=== PATIENT | male | born 1990 | race Caucasian/White ===

== ENCOUNTER 2020-08-15 20:06 | Emergency (ER) | payer OTHER, SELFPAY ==
[2020-08-15 20:12] VITALS: BP 117/80; PULSE 71; RESP 19; TEMP 37.1; O2SAT 100; BMI 31.7
--- NOTE | 2020-08-15 21:02 | ED.GENADULT ---
HPI - General Adult General Chief complaint: Dental/Oral Stated complaint: TOOTH AND JAW PAIN Time Seen by Provider: 08/15/20 20:35 Source: patient Mode of arrival: Ambulatory Limitations: no limitations History of Present Illness HPI narrative: Patient is a 29-year-old male here for evaluation of left upper tooth pain. Patient states that he has had issues with his teeth in the past this been going on for upwards of 1 year. He has seen a dentist and was told that he has multiple cavities and he is scheduled to see his dentist on Tuesday of next week for more definitive treatment. He also has pain medication at home and has been taking Tylenol and ibuprofen without much improvement. He is afebrile. No problems swallowing. No problems breathing. Related Data Previous Rx's Medication Instructions Recorded penicillin V potassium 500 mg PO QID 7 Days #28 tab 08/15/20 Allergies Allergy/AdvReac Type Severity Reaction Status Date / Time Sulfa (Sulfonamide Allergy Hives Verified 08/15/20 20:12 Antibiotics) Review of Systems Constitutional Constitutional: Denies fever(s) ENT Ears, Nose, Mouth, and Throat: Denies throat swelling Comments: Left upper tooth pain Cardiovascular Cardiovascular: Denies dyspnea Respiratory Respiratory: Denies dyspnea Integumentary/Breasts Skin/Breast: Denies rash Neurologic Neurologic: Reports system reviewed and no additional complaints, except as documented Hematologic/Lymphatic On Anticoagulants: No Allergic/Immunologic Allergic/Immunologic: Reports system reviewed and no additional complaints, except as documented and Denies throat swelling Patient History Medical History Healthy adult Social History Smoking Status: Current every day smoker Smoking Status: Current every day smoker Substance Use Type: does not use Exam Initial Vital Signs Initial Vital Signs: Vital Signs Temperature 98.7 F 08/15/20 20:12 Pulse Rate 71 08/15/20 20:12 Respiratory Rate 19 08/15/20 20:12 Blood Pressure 117/80 08/15/20 20:12 Pulse Oximetry 100 08/15/20 20:12 Const General: cooperative Limitations: mental status not altered HENMT Head: normal to inspection and normocephalic Ears: TM's normal bilaterally Nose: external nose normal Face and sinus: normal facial exam Mouth: oral mucosae normal, lip normal and tongue normal Teeth and gingiva: fair dentition Throat: posterior oropharynx normal Resp Effort & Inspection: normal respiratory effort Skin Lesions: no lesions Rashes: no rashes Neuro General: patient alert and patient awake Extrem General: capillary refill normal Psych Appearance: grossly normal and well kempt Course Orders Ordered: Discontinued Medications Ketorolac Tromethamine (Ketorolac 30 Mg/Ml Vial) 30 mg IM NOW ONE Stop: 08/15/20 21:11 Last Admin: 08/15/20 21:22 Dose: 30 mg Documented by: SHEREEN Penicillin V Potassium (Penicillin Vk 250 Mg Tablet) 500 mg PO NOW ONE Stop: 08/15/20 21:12 Last Admin: 08/15/20 21:22 Dose: 500 mg Documented by: SHEREEN Vital Signs Vital signs: Vital Signs - 8 hr 08/15/20 21:24 Pulse Rate 75 Respiratory Rate 18 Blood Pressure 153/98 H Pulse Oximetry 100 Medical Decision Making MDM Narrative Medical decision making narrative: Patient does have left upper dental discomfort. There is no obvious abscess noted on the exam today that would be amenable to drainage from the emergency department. He is afebrile. No obvious respiratory issues. Given his discomfort that he is having and the obvious dental caries will place him on antibiotics. Unfortunately he has stronger pain medication already at home with that I would prescribe out of the emergency department so he was instructed that he needed to keep his appointment with his dentist next week. He is given return precautions. He expressed understanding and agreement. Discharge Plan Departure Patient Disposition: Home Clinical Impression: Toothache Instructions: DI for Dental Pain Activity Restrictions/Additional Instructions: Recommend that you continue with the anti-inflammatories such as Tylenol/ibuprofen. He can also continue with the pain medication given to you by the dentist. We will start you on antibiotics and recommend that you keep your follow-up appointment with her dentist next week. Prescriptions: New penicillin V potassium 500 mg tablet 500 mg PO QID 7 Days Qty: 28 RF: 0
[2020-08-15] MEDS: KETOROLAC 30 MG/ML VIAL IM (21:22)
[2020-08-15] MEDS: PENICILLIN VK 250 MG TABLET 500 MG PO (21:22)
[2020-08-15 21:24] VITALS: BP 153/98; PULSE 75; RESP 18; O2SAT 100
== END 2020-08-15 21:25 | disposition home or self-care (01) ==
PROVIDERS: Emergency Provider Emergency Medicine
DX: K08.89 Other specified disorders of teeth and supporting structures (principal)
CPT/HCPCS: 96372; 99283; J1885

== ENCOUNTER 2022-05-07 17:59 | Emergency (ER) | payer OTHER, SELFPAY ==
[2022-05-07 18:02] VITALS: BP 133/81; PULSE 97; RESP 16; TEMP 36.4; O2SAT 97; BMI 40.6
--- NOTE | 2022-05-07 18:04 | DI.RAD.S_ITS ---
PROCEDURE: XR CHEST 1V INDICATIONS: cough, wheezing, short of breath TECHNIQUE: One view of the chest was acquired. COMPARISON: None. FINDINGS: Surgical changes and devices: None. Lungs and pleura: An incomplete inspiratory result is noted, causing a crowded appearance to the lung markings. No focal infiltrates are seen. No pneumothorax or significant pleural effusions are seen. Mediastinum: Mediastinal contours appear normal. Heart size is normal. Bones and chest wall: No suspicious bony lesions. Overlying soft tissues appear unremarkable. IMPRESSION: Limited portable chest examination, without a significant cardiopulmonary abnormality identified. Dictated by: Shola Quinteros M.D. on 05/07/2022 at 17:56 Approved by: Shola Quinteros M.D. on 05/07/2022 at 17:57
[2022-05-07 19:08] LABS: Adenovirus Not Detected (Not Detect); B. parapertussis Not Detected (Not Detecte); Bordetella pertussis Not Detected (Not Detecte); Chlamydophila pneumoniae Not Detected (Not Detect); Coronavirus 229E Not Detected (Not Detect); Coronavirus HKU1 Not Detected (Not Detect); Coronavirus NL 63 Not Detected (Not Detect); Coronavirus OC43 Not Detected (Not Detect); Human Metapneumovirus Detected (Not Detect); Human Rhinovirus/Enterovirus Not Detected (Not Detect); Influenza A Not Detected (Not Detect); Influenza B Not Detected (Not Detect); Mycoplasma pneumoniae Not Detected (Not Detect); Parainfluenza Virus 1 Not Detected (Not Detect); Parainfluenza Virus 2 Not Detected (Not Detect); Parainfluenza Virus 3 Not Detected (Not Detect); Parainfluenza Virus 4 Not Detected (Not Detect); Respiratory Syncytial Virus Not Detected (Not Detect); SARS- CoV-2 Not Detected (Not Detecte)
--- NOTE | 2022-05-07 20:15 | ED.GENADULT ---
HPI - General Adult General Chief complaint: Upper Respiratory Symptoms Stated complaint: Fever, Vomiting Time Seen by Provider: 05/07/22 20:12 History of Present Illness HPI narrative: 31-year-old male daily smoker presents with a chief complaint of various upper respiratory symptoms including nasal congestion, runny nose, sore throat, dry hacking cough and a few episodes of vomiting over the past few days. He is most concerned that may have developed pneumonia. He denies any significant shortness of breath. He states deep breath illicits cough. He denies any abdominal pain or diarrhea. Denies any exposure to obviously ill persons. Related Data Previous Rx's Medication Instructions Recorded benzonatate 200 mg capsule 200 mg PO BID PRN cough #20 caps 05/07/22 ondansetron 4 mg disintegrating 4 mg PO TID-QID PRN nausea and 05/07/22 tablet vomiting #10 tabs Allergies Allergy/AdvReac Type Severity Reaction Status Date / Time Sulfa (Sulfonamide Allergy Hives Verified 08/15/20 20:12 Antibiotics) Review of Systems Review of Systems Narrative: GENERAL: See HPI HEENT: See HPI RESPIRATORY: See HPI CARDIOVASCULAR: Denies chest pain, palpitations, orthopnea, edema, GASTROINTESTINAL: See HPI : Denies dysuria, frequency, incontinence, hematuria, urinary retention. MUSCULOSKELETAL: denies weakness, joint pain, or bony pain SKIN: Denies rash, skin lesions, or other NEUROLOGIC: Denies weakness, headache, numbness, change in speech, confusion, seizures, incoordination. PSYCHIATRIC: No concerning psychosocial issues. 12 point review of systems is negative except for those stated above Patient History Medical History Healthy adult Social History Smoking Status: Current every day smoker Smoking Status: Current every day smoker Substance Use Type: does not use Exam Narrative Exam Narrative: GENERAL: [31] year old patient appears stated age. Well-developed patient, in mild distress. HEAD: Atraumatic. Normocephalic. EYES: Pupils equal round and reactive. Extraocular motions intact. No scleral icterus. No injection or drainage. ENT: Clear nasal drainage. Throat without erythema, clear postnasal drip, tonsillar hypertrophy or exudate. Airway patent. NECK: Trachea midline. Non tender CARDIOVASCULAR: Regular rate and rhythm without murmurs, gallops, or rubs. RESPIRATORY: Mild end expiratory wheeze, deep breath illicits cough, no significant increased work of breathing, tachycardia, tachypnea, hypoxemia or use of accessory muscles GASTROINTESTINAL: Abdomen soft, non-tender, nondistended. EXTREMITIES: No edema or joint tenderness. BACK: Nontender without deformity or crepitance. No flank tenderness. NEURO: AOx3. SKIN: No rash or erythema of visible areas Initial Vital Signs Initial Vital Signs: Vital Signs Temperature 97.6 F 05/07/22 18:02 Pulse Rate 97 H 05/07/22 18:02 Respiratory Rate 16 05/07/22 18:02 Blood Pressure 133/81 05/07/22 18:02 Pulse Oximetry 97 05/07/22 18:02 Oxygen Delivery Method Room Air 05/07/22 18:02 Course Orders Ordered: Discontinued Medications Albuterol (Albuterol Hfa Prepack) 1 box MISC SEEINSTR ONE Stop: 05/07/22 21:09 Last Admin: 05/07/22 21:19 Dose: 1 box Documented By: BOONE Ondansetron HCl (Ondansetron 4 Mg Odt Prepack) 1 bottle MISC SEEINSTR ONE Stop: 05/07/22 21:09 Last Admin: 05/07/22 21:19 Dose: 1 bottle Documented By: BOONE Vital Signs Vital signs: Vital Signs - 8 hr 05/07/22 18:02 Temperature 97.6 F Pulse Rate 97 H Respiratory Rate 16 Blood Pressure 133/81 Pulse Oximetry 97 Oxygen Delivery Method Room Air Medical Decision Making Lab Data Labs: Lab Results 05/07/22 Range/Units 18:06 Chlamy pneumoniae PCR Not detected (Not Detect) Adenovirus (PCR) Not detected (Not Detect) B. pertussis DNA (PCR) Not detected (Not Detecte) B.parapertussis DNA PCR Not detected (Not Detecte) Coronavirus OC43 (PCR) Not detected (Not Detect) Coronavirus HKU1 (PCR) Not detected (Not Detect) Coronavirus 229E (PCR) Not detected (Not Detect) SARS-CoV-2 (PCR) Not detected (Not Detecte) Coronavirus NL63 (PCR) Not detected (Not Detect) Human Metapneumovir PCR Detected H (Not Detect) Influenza Type A (PCR) Not detected (Not Detect) Influenza Type B (PCR) Not detected (Not Detect) M. pneumoniae (PCR) Not detected (Not Detect) Parainfluenza 1 (PCR) Not detected (Not Detect) Parainfluenza 2 (PCR) Not detected (Not Detect) Parainfluenza 3 (PCR) Not detected (Not Detect) Parainfluenza 4 (PCR) Not detected (Not Detect) RSV (PCR) Not detected (Not Detect) Entero/Rhino (PCR) Not detected (Not Detect) Imaging Data Chest x-ray: My Impression: No infiltrate MDM Narrative Medical decision making narrative: [31] year old patient presents with various upper respiratory symptoms including cough, vomiting, nasal congestion runny nose Multiple etiologies for patient's symptoms considered including, but not limited to: [Flu, COVID, pneumonia versus other] Prior Charts reviewed in our EMR Primary Historian: patient Labs reviewed and interpreted by myself: Respiratory panel positive for human metapneumovirus Imaging reviewed: No infiltrate Patient without significant work of breathing, no hypoxemia, no infiltrate on imaging, there is no indication for antibiotics Patient's symptoms improved over duration of stay with above-stated therapies. Findings and discharge diagnosis discussed with patient/family followed by verbalization of understanding Return precautions discussed with patient/family whom verbalize understanding of diagnosis and plan Discharge Plan Departure Patient Disposition: Home Clinical Impression: Acute bronchiolitis due to human metapneumovirus, Vomiting Instructions: DI for Viral Upper Respiratory Infection -- Adult, DI for Vomiting -- Adult Activity Restrictions/Additional Instructions: *You have been diagnosed with [viral upper respiratory infection due to human metapneumovirus. As we discussed your history and physical exam are reassuring, chest x-ray shows no sign of pneumonia and there is no indication for antibiotics] *What to do: *Please continue to take your regular medications as directed. [x ] New medication prescriptions sent to your pharmacy: [[facility] ] [ ] New medication written as a paper prescription [ ] No new medications given *Please follow up with your primary care provider in 2-3 days, call for an appointment. Let them know you were seen in the Emergency Department and that we ask that you be seen in follow up. We will electronically transmit a record of today's note if your PCP is in our system *If you do not have a primary care provider please contact the [facility] Resource line at [phone]. They will ask some questions about your medical history and help get you set up with a doctor in the community. *Return to Emergency Department if you should have any new, worsening or concerning symptoms, such as [fever greater than 101 F, shaking chills, worsening pain, persistent vomiting or other bothersome symptoms] Prescriptions: New benzonatate 200 mg capsule 200 mg PO BID PRN (Reason: cough) Qty: 20 0RF ondansetron 4 mg tablet,disintegrating 4 mg PO TID-QID PRN (Reason: nausea and vomiting) Qty: 10 0RF Stand Alone Forms: Patient Portal/API
[2022-05-07] MEDS: ONDANSETRON 4 MG ODT PREPACK 1 BOTTLE MISC (21:19)
[2022-05-07] MEDS: ALBUTEROL HFA PREPACK 1 BOX MISC (21:19)
[2022-05-07 21:24] VITALS: BP 134/87; PULSE 87; RESP 24; O2SAT 98
== END 2022-05-07 21:25 | disposition home or self-care (01) ==
PROVIDERS: Emergency Medicine; Emergency Provider Emergency Medicine
DX: J21.1 Acute bronchiolitis due to human metapneumovirus (principal); R11.10 Vomiting, unspecified; Z20.822 Contact with and (suspected) exposure to COVID-19
CPT/HCPCS: 71045; 87633; 99281; 99283

== ENCOUNTER → 2023-09-14 15:03 | Outpatient (CLI) | payer OTHER, SELFPAY ==
[2023-09-14 16:36] LABS: Add Manual Diff / Slide Review NO; Basophils Absolute Auto 100 /uL (0-100); Eosinophils Absolute Auto 300 /uL (0-450); Eosinophils Percent Auto 3.7 % (2-4); Hemoglobin 12.7 g/dL (13.5-17.5); Lymphocytes Absolute Auto 2700 /uL (1100-4500); Lymphocytes Percent Auto 31.1 % (25-40); Mean Corpuscular HGB Conc 34.4 % (30-36); Mean Corpuscular Hemoglobin 29.4 PG (26-34); Mean Corpuscular Volume 85.4 fL (80-100); Monocytes Absolute Auto 700 /uL (0-900); Monocytes Percent Auto 8.4 % (3-14); Neutrophils Absolute Auto 4800 /uL (1500-7000); Neutrophils Percent Auto 55.8 % (50-75); Platelet Count 545 X10^3/uL (150-400); Red Blood Cell Count 4.33 X10^6/uL (4.5-5.9); Red Cell Distribution Width 12.7 % (11.6-14.8); White Blood Cell Count 8.7 X10^3/uL (4.5-11.0)
[2023-09-14 17:07] LABS: HEMOLYSIS < 15 (0-50); Iron 93 ug/dL (49-181)
[2023-09-14 17:14] LABS: Alanine Aminotransferase 62 IU/L (<50); Albumin 4.6 g/dL (3.5-5.0); Albumin Globulin Ratio 1.4 (1.0-2.8); Alkaline Phosphatase 118 U/L (38-126); Aspartate Aminotransferase 48 IU/L (17-59); BUN Creatinine Ratio 12.6 (6-22); Bilirubin Total 0.4 mg/dL (0.2-1.3); Blood Urea Nitrogen 12 mg/dL (9-20); C-Reactive Protein Quant 0.8 mg/dL (<1.0); Calcium 9.1 mg/dL (8.4-10.2); Carbon Dioxide 27 mmol/L (22-32); Chloride 105 mmol/L (98-107); Estimated Glomerular Filt Rate > 60 mL/min (>60); Globulin 3.3 g/dL (1.7-4.1); Glucose 82 mg/dL (70-100); HEMOLYSIS < 15 (0-50); Potassium 4.2 mmol/L (3.4-5.1); Sodium 140 mmol/L (137-145); Total Protein 7.9 g/dL (6.3-8.2)
[2023-09-14 17:18] LABS: Percent Iron Saturation 33 % (20-50); Total Iron Binding Capacity 283 ug/dL (261-462)
[2023-09-14 17:23] LABS: Transferrin 247 mg/dL (206-381)
[2023-09-14 17:27] LABS: Vitamin D 25 Hydroxy (D3) 21.5 ng/mL (30.0-100.0)
[2023-09-14 17:48] LABS: Ferritin 84 ng/mL (18-464)
[2023-09-14 18:03] LABS: Vitamin B12 Reflex MMA if <400 821 pg/mL (239-931)
[2023-09-15 21:10] LABS: HIV 1 & 2 Ab/Ag 4th Gen Combo NEGATIVE (NEGATIVE); Hep C Virus Ab w/Reflex Quant NEGATIVE s/c (NEGATIVE)
== END ==
PROVIDERS: PCP Family Medicine; Referring Provider Family Medicine; Visit Provider Family Medicine
DX: Z11.59 Encounter for screening for other viral diseases (principal); Z11.4 Encounter for screening for human immunodeficiency virus [HIV]; Z13.21 Encounter for screening for nutritional disorder; K50.90 Crohn's disease, unspecified, without complications
CPT/HCPCS: 36415; 80053; 82306; 82607; 82728; 83540; 83550; 85025; 86140; 86803; 87389

== ENCOUNTER 2024-05-27 08:23 | Emergency (ER) | payer OTHER, SELFPAY ==
[2024-05-27 08:41] VITALS: BP 132/79; PULSE 113; RESP 20; TEMP 37.2; O2SAT 97; BMI 40.6
--- NOTE | 2024-05-27 08:45 | DI.RAD.S_ITS ---
PROCEDURE: XR CHEST 2V INDICATIONS: r/o pna TECHNIQUE: 2 views of the chest were acquired. COMPARISON: [facility], , XR CHEST 1V, 05/07/2022, 18:08. FINDINGS: Surgical changes and devices: None. Lungs and pleura: Lungs are clear. No pleural effusions or pneumothorax. Mediastinum: Mediastinal contours are normal. Heart size is normal. Bones and chest wall: No suspicious bony abnormalities. Soft tissues appear unremarkable. IMPRESSION: No acute cardiothoracic process. Dictated by: Montana Murray M.D. on 05/27/2024 at 8:14 Approved by: Montana Murray M.D. on 05/27/2024 at 8:14
[2024-05-27 09:27] LABS: Influenza A - CEPHEID Flu A NEGATIVE (NEGATIVE); Influenza B - CEPHEID Flu B NEGATIVE (NEGATIVE); Respiratory Syncytial Virus Negative (Negative)
[2024-05-27 09:28] LABS: COVID-19 CEPHEID 4-PLEX PCR Negative (Negative)
--- NOTE | 2024-05-27 11:12 | ED.URI ---
HPI - URI/Sore Throat <Annmarie Pérez PA-C - Last Filed: 05/27/24 16:21> General Chief Complaint: Upper Respiratory Symptoms Stated Complaint: T-3 Flu like symp. 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 Patient states his symptoms got much worse last night. He had an episode of nonbloody vomiting. States that his asthma is getting worse because of this and he has occasional pain in his chest with coughing and shortness of breath. He does not have an inhaler at home. He denies any smoking. States that he took NyQuil this morning which did help. He is concerned for possible pneumonia as he has had this in the past. Denies abdominal pain, dysuria, ear pain, diarrhea, constipation. History of tonsillectomy. History of tobacco use in chart. Related Data Previous Rx's Medication Instructions Recorded hydroxyzine HCl 25 mg tablet 25 mg PO QID PRN anxiety #90 tabs 08/31/23 albuterol sulfate 90 mcg/actuation 1 inh inhalation QID PRN shortness 05/27/24 aerosol inhaler of breath or wheezing #6.7 grams benzonatate 100 mg capsule 100 mg PO BID-TID PRN cough #20 05/27/24 caps ondansetron 4 mg disintegrating 4 mg PO Q8H PRN nausea and 05/27/24 tablet vomiting #14 tabs Allergies Allergy/AdvReac Type Severity Reaction Status Date / Time Sulfa (Sulfonamide Allergy Hives Verified 09/15/23 12:14 Antibiotics) Review of Systems <Annmarie Pérez PA-C - Last Filed: 05/27/24 16:21> Review of Systems ROS Unobtainable: All systems reviewed & are unremarkable except as noted in HPI and below Patient History <Annmarie Pérez PA-C - Last Filed: 05/27/24 16:21> Medical History History of tobacco use Salivary gland infection Healthy adult Social History marital status: unmarried,living together number of children: 3 household members: significant other and children lives independently: Yes education level: high school (did not graduate) occupational status: employed Smoking Status: Former smoker Tobacco: How many years used: 12 Smoking Status: Former smoker Exam <Annmarie Pérez PA-C - Last Filed: 05/27/24 16:21> Narrative Exam Narrative: GENERAL: 33 year old patient appears stated age. Obese patient, in no acute distress, frequent dry cough HEAD: Atraumatic. Normocephalic. EYES:No scleral icterus. No injection or drainage. ENT: Nose without bleeding, purulent drainage. Throat with mild posterior oropharyngeal erythema, no tonsils. Airway patent. Normal TMs bilaterally. NECK: Trachea midline. Cervical ROM intact. CARDIOVASCULAR: Increased rate and regular rhythm. RESPIRATORY: ?Nonlabored respirations. ?Speaking in clear, full sentences. ?Clear to auscultation. Breath sounds equal bilaterally. No wheezes, rales, or rhonchi. ? GASTROINTESTINAL: Abdomen soft, non-tender, nondistended. Normal BS. Negative Champagne sign. EXTREMITIES: No edema or joint tenderness. NEURO: AOx3. ?Clear speech. ?Moves all 4 extremities appropriately. SKIN: No rash or erythema of visible areas Initial Vital Signs Initial Vital Signs: Vital Signs Temperature 98.9 F 05/27/24 08:41 Pulse Rate 113 H 05/27/24 08:41 Respiratory Rate 20 05/27/24 08:41 Blood Pressure 132/79 05/27/24 08:41 Pulse Oximetry 97 05/27/24 08:41 Oxygen Delivery Method Room Air 05/27/24 08:41 <Doroteo Mckeon MD - Last Filed: 05/27/24 20:15> Initial Vital Signs Initial Vital Signs: Vital Signs Temperature 98.9 F 05/27/24 08:41 Pulse Rate 113 H 05/27/24 08:41 Respiratory Rate 20 05/27/24 08:41 Blood Pressure 132/79 05/27/24 08:41 Pulse Oximetry 97 05/27/24 08:41 Oxygen Delivery Method Room Air 05/27/24 08:41 Course <Annmarie Pérez PA-C - Last Filed: 05/27/24 16:21> Orders Ordered: ED Orders 05/27/24 11:49 CBC Auto Diff [Complete Blood Count AUTO DIFF] Stat CMP [Comprehensive Metabolic Panel] Stat Lipase Stat Strep Grp A by PCR Rapid Stat Discontinued Medications Sodium Chloride (Normal Saline 0.9%) 1,000 mls @ 1,000 mls/hr IV BOLUS ONE Stop: 05/27/24 12:22 Last Infusion: 05/27/24 13:01 Dose: Infused Documented By: Admin: 05/27/24 12:00 Dose: 1,000 mls/hr Documented By: GIOVANY Ketorolac Tromethamine (Ketorolac 30 Mg/Ml Vial) 15 mg IV NOW ONE Stop: 05/27/24 11:24 Last Admin: 05/27/24 12:01 Dose: 15 mg Documented By: GIOVANY Ondansetron HCl (Ondansetron 4 Mg/2 Ml Inj) 4 mg IV NOW ONE Stop: 05/27/24 11:24 Last Admin: 05/27/24 12:01 Dose: 4 mg Documented By: GIOVANY Vital Signs Vital signs: Vital Signs - 8 hr 05/27/24 12:59 Temperature 98.3 F Pulse Rate 88 Respiratory Rate 20 Blood Pressure 150/80 H Pulse Oximetry 95 Oxygen Delivery Method Room Air <Doroteo Mckeon MD - Last Filed: 05/27/24 20:15> Orders Ordered: ED Orders 05/27/24 11:49 CBC Auto Diff [Complete Blood Count AUTO DIFF] Stat CMP [Comprehensive Metabolic Panel] Stat Lipase Stat Strep Grp A by PCR Rapid Stat Discontinued Medications Sodium Chloride (Normal Saline 0.9%) 1,000 mls @ 1,000 mls/hr IV BOLUS ONE Stop: 05/27/24 12:22 Last Infusion: 05/27/24 13:01 Dose: Infused Documented By: Admin: 05/27/24 12:00 Dose: 1,000 mls/hr Documented By: GIOVANY Ketorolac Tromethamine (Ketorolac 30 Mg/Ml Vial) 15 mg IV NOW ONE Stop: 05/27/24 11:24 Last Admin: 05/27/24 12:01 Dose: 15 mg Documented By: GIOVANY Ondansetron HCl (Ondansetron 4 Mg/2 Ml Inj) 4 mg IV NOW ONE Stop: 05/27/24 11:24 Last Admin: 05/27/24 12:01 Dose: 4 mg Documented By: GIOVANY Vital Signs Vital signs: Vital Signs - 8 hr 05/27/24 12:59 Temperature 98.3 F Pulse Rate 88 Respiratory Rate 20 Blood Pressure 150/80 H Pulse Oximetry 95 Oxygen Delivery Method Room Air MDM - URI/Sore Throat <Annmarie Pérez PA-C - Last Filed: 05/27/24 16:21> Medical Records Attestation: I reviewed the patient's medical records. Medical records narrative: ED visit 05/07/2022 for acute bronchiolitis due to human metapneumovirus Lab Data 05/27/24 11:49 05/27/24 11:49 Labs: Lab Results 05/27/24 05/27/24 Range/Units 08:46 11:49 WBC 10.5 (4.5-11.0) X10^3/uL RBC 4.67 (4.5-5.9) X10^6/uL Hgb 13.6 (13.5-17.5) g/dL Hct 39.7 L (41-53) % MCV 85.0 (80-100) fL MCH 29.0 (26-34) PG MCHC 34.2 (30-36) % RDW 13.8 (11.6-14.8) % Plt Count 513 H (150-400) X10^3/uL Neut % (Auto) 75.6 H (50-75) % Lymph % (Auto) 12.9 L (25-40) % [place] % (Auto) 10.6 (3-14) % Eos % (Auto) 0.1 L (2-4) % Baso % (Auto) 0.8 (0-2) % Neut # (Auto) 7900 H (0151-3073) /uL Lymph # (Auto) 1400 (0539-0515) /uL [place] # (Auto) 1100 H (0-900) /uL Eos # (Auto) 0 (0-450) /uL Baso # (Auto) 100 (0-100) /uL Sodium 137 (137-145) mmol/L Potassium 4.2 (3.4-5.1) mmol/L Chloride 101 (98-107) mmol/L Carbon Dioxide 22 (22-32) mmol/L BUN 14 (9-20) mg/dL Creatinine 0.90 (0.66-1.25) mg/dL Estimated GFR > 60 (>60) mL/min BUN/Creatinine Ratio 15.6 (6-22) Glucose 106 H (70-100) mg/dL Calcium 9.7 (8.4-10.2) mg/dL Total Bilirubin 0.6 (0.2-1.3) mg/dL AST 53 (17-59) IU/L ALT 65 H (<50) IU/L Alkaline Phosphatase 141 H (38-126) U/L Total Protein 8.6 H (6.3-8.2) g/dL Albumin 4.8 (3.5-5.0) g/dL Globulin 3.8 (1.7-4.1) g/dL Albumin/Globulin Ratio 1.3 (1.0-2.8) Lipase 41 (23-300) U/L SARS-CoV-2 (PCR) Negative (Negative) Influenza A (RT-PCR) Flu a negative (NEGATIVE) Influenza B (RT-PCR) Flu b negative (NEGATIVE) RSV (PCR) Negative (Negative) Group A Strep (PCR) Negative (Negative) Imaging Data Chest x-ray: Radiologist's Impression: PROCEDURE: XR CHEST 2V INDICATIONS: r/o pna TECHNIQUE: 2 views of the chest were acquired. COMPARISON: [facility], , XR CHEST 1V, 05/07/2022, 18:08. FINDINGS: Surgical changes and devices: None. Lungs and pleura: Lungs are clear. No pleural effusions or pneumothorax. Mediastinum: Mediastinal contours are normal. Heart size is normal. Bones and chest wall: No suspicious bony abnormalities. Soft tissues appear unremarkable. IMPRESSION: No acute cardiothoracic process. 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 Differential diagnosis includes but is not limited to viral syndrome, bronchitis, pneumonia, gastroenteritis, asthma exacerbation, etc. On exam patient is in no acute distress, nontoxic appearing. He is tachycardic and has frequent dry cough. No wheezing auscultated, lungs are clear. Mild posterior oropharyngeal erythema. Dry heaving during exam. Viral swab and chest x-ray were obtained in triage and are negative. Due to persistent tachycardia, we will check CBC, CMP, treat with 1 L IV fluids, Zofran, Toradol. Lab work reveals normal WBC count 10.5, hemoglobin 13.6. Does have elevated platelets 513 however these have improved from priors. Normal electrolytes, normal renal function with a creatinine of 0.90. Glucose 106. He does have mild elevation of ALT at 65 and alkaline phosphatase at 141. He has no right upper quadrant pain or tenderness. He tested negative for flu, COVID, RSV and strep throat. Chest x-ray is negative for pneumonia. He is feeling much better after ED treatment but reports he continues to have a mild headache and mild dry cough. Heart rate decreased to 88 on my last examination. At this time his symptoms are most consistent with an upper respiratory viral illness I recommended supportive care with acetaminophen, ibuprofen, rest and prescriptions of Zofran, benzonatate, and albuterol were sent to the pharmacy as patient does report a history of asthma. We discussed follow up with PCP and strict ED return precautions. He verbalized understanding of all information is agreeable to this plan. He is stable for discharge home. <Doroteo Mckeon MD - Last Filed: 05/27/24 20:15> Lab Data Labs: Lab Results 05/27/24 05/27/24 Range/Units 08:46 11:49 WBC 10.5 (4.5-11.0) X10^3/uL RBC 4.67 (4.5-5.9) X10^6/uL Hgb 13.6 (13.5-17.5) g/dL Hct 39.7 L (41-53) % MCV 85.0 (80-100) fL MCH 29.0 (26-34) PG MCHC 34.2 (30-36) % RDW 13.8 (11.6-14.8) % Plt Count 513 H (150-400) X10^3/uL Neut % (Auto) 75.6 H (50-75) % Lymph % (Auto) 12.9 L (25-40) % [place] % (Auto) 10.6 (3-14) % Eos % (Auto) 0.1 L (2-4) % Baso % (Auto) 0.8 (0-2) % Neut # (Auto) 7900 H (6372-3318) /uL Lymph # (Auto) 1400 (0646-0695) /uL [place] # (Auto) 1100 H (0-900) /uL Eos # (Auto) 0 (0-450) /uL Baso # (Auto) 100 (0-100) /uL Sodium 137 (137-145) mmol/L Potassium 4.2 (3.4-5.1) mmol/L Chloride 101 (98-107) mmol/L Carbon Dioxide 22 (22-32) mmol/L BUN 14 (9-20) mg/dL Creatinine 0.90 (0.66-1.25) mg/dL Estimated GFR > 60 (>60) mL/min BUN/Creatinine Ratio 15.6 (6-22) Glucose 106 H (70-100) mg/dL Calcium 9.7 (8.4-10.2) mg/dL Total Bilirubin 0.6 (0.2-1.3) mg/dL AST 53 (17-59) IU/L ALT 65 H (<50) IU/L Alkaline Phosphatase 141 H (38-126) U/L Total Protein 8.6 H (6.3-8.2) g/dL Albumin 4.8 (3.5-5.0) g/dL Globulin 3.8 (1.7-4.1) g/dL Albumin/Globulin Ratio 1.3 (1.0-2.8) Lipase 41 (23-300) U/L SARS-CoV-2 (PCR) Negative (Negative) Influenza A (RT-PCR) Flu a negative (NEGATIVE) Influenza B (RT-PCR) Flu b negative (NEGATIVE) RSV (PCR) Negative (Negative) Group A Strep (PCR) Negative (Negative) Discharge Plan Departure Patient Disposition: Home Clinical Impression: Upper respiratory infection, viral Instructions: DI for Acute Bronchitis Activity Restrictions/Additional Instructions: Dear Mr. Christianson, Thank you for coming to the emergency department. Today your chest x-ray was negative for pneumonia or any acute abnormalities. Your lab work reveals mild elevation and some of your liver enzymes which you should have repeated with your primary care doctor. You tested negative for COVID, flu, RSV, strep throat. At this time your symptoms are most consistent with an acute upper respiratory infection/bronchitis. I prescribed you cough medicine, nausea medicine and inhaler to use if needed. I would also like you to take ibuprofen and acetaminophen if needed for pain or fevers. It is very important to rest, hydrate, drink warm tea with honey to help soothe the throat, and stay home from work until your 24 hours fever free. Please return to the emergency department if you develop any new or worsening symptoms, persistent fevers or other concerns. Please take Ibuprofen (Motrin/Advil) or Acetaminophen (Tylenol) for pain. These are available over the counter. You may take Ibuprofen 600 mg every 8 hours with food for pain. You may also take Acetaminophen 650 mg every 4-6 hours for pain. Do not exceed 3000 mg of Tylenol a day as this can cause liver damage. Do not drink alcohol with either of these medications. Please follow up with your primary care doctor within the next 2-3 days for ER follow-up. (If you do not have a PCP you can call [phone]. ?to schedule an appointment with an [facility] Primary Care Provider) IF YOU DEVELOP ANY NEW OR WORSENING SYMPTOMS, RETURN TO THE ER! Please read the attached instructions, they highlight more specific treatments and interventions for you at home. Thank you for letting me participate in your care, Annmarie Pérez PA-C Prescriptions: New albuterol sulfate 90 mcg/actuation HFA aerosol inhaler 1 inh inhalation QID PRN (Reason: shortness of breath or wheezing) Qty: 6.7 0RF benzonatate 100 mg capsule 100 mg PO BID-TID PRN (Reason: cough) Qty: 20 0RF ondansetron 4 mg tablet,disintegrating 4 mg PO Q8H PRN (Reason: nausea and vomiting) Qty: 14 0RF No Action hydroxyzine HCl 25 mg tablet 25 mg PO QID PRN (Reason: anxiety) Qty: 90 0RF Referrals: Gaston Newberry MD [Primary Care Provider] - Stand Alone Forms: Patient Portal/API/Survey, Work Release Note ED Sign-out <Doroteo Mckeon MD - Last Filed: 05/27/24 20:15> Cosign ED Attending Oliverio Attestation: I was immediately available in the department for consultation. This documentation has been reviewed and I agree with assessment and plan. Supervised by Doroteo Mckeon MD
[2024-05-27 11:17] VITALS: BP 158/98; PULSE 120; RESP 20; TEMP 37.2; O2SAT 98
[2024-05-27] MEDS: SODIUM CHLORIDE 0.9% 1,000 ML 1000 ML IV (12:00)
[2024-05-27 12:01] LABS: Add Manual Diff / Slide Review NO; Basophils Absolute Auto 100 /uL (0-100); Basophils Percent Auto 0.8 % (0-2); Eosinophils Absolute Auto 0 /uL (0-450); Eosinophils Percent Auto 0.1 % (2-4); Hematocrit 39.7 % (41-53); Hemoglobin 13.6 g/dL (13.5-17.5); Lymphocytes Absolute Auto 1400 /uL (1100-4500); Lymphocytes Percent Auto 12.9 % (25-40); Mean Corpuscular HGB Conc 34.2 % (30-36); Monocytes Absolute Auto 1100 /uL (0-900); Monocytes Percent Auto 10.6 % (3-14); Neutrophils Absolute Auto 7900 /uL (1500-7000); Neutrophils Percent Auto 75.6 % (50-75); Platelet Count 513 X10^3/uL (150-400); Red Blood Cell Count 4.67 X10^6/uL (4.5-5.9); Red Cell Distribution Width 13.8 % (11.6-14.8); White Blood Cell Count 10.5 X10^3/uL (4.5-11.0)
[2024-05-27] MEDS: ONDANSETRON 4 MG/2 ML INJ IV (12:01)
[2024-05-27] MEDS: KETOROLAC 30 MG/ML VIAL 15 MG IV (12:01)
[2024-05-27 12:12] LABS: Strep Grp A by PCR Rapid Negative (Negative)
[2024-05-27 12:14] LABS: Alanine Aminotransferase 65 IU/L (<50); Albumin 4.8 g/dL (3.5-5.0); Albumin Globulin Ratio 1.3 (1.0-2.8); Alkaline Phosphatase 141 U/L (38-126); Aspartate Aminotransferase 53 IU/L (17-59); BUN Creatinine Ratio 15.6 (6-22); Bilirubin Total 0.6 mg/dL (0.2-1.3); Blood Urea Nitrogen 14 mg/dL (9-20); Calcium 9.7 mg/dL (8.4-10.2); Carbon Dioxide 22 mmol/L (22-32); Chloride 101 mmol/L (98-107); Estimated Glomerular Filt Rate > 60 mL/min (>60); Globulin 3.8 g/dL (1.7-4.1); Glucose 106 mg/dL (70-100); HEMOLYSIS < 15 (0-50); Lipase 41 U/L (23-300); Potassium 4.2 mmol/L (3.4-5.1); Sodium 137 mmol/L (137-145); Total Protein 8.6 g/dL (6.3-8.2)
[2024-05-27 12:59] VITALS: BP 150/80; PULSE 88; RESP 20; TEMP 36.8; O2SAT 95
== END 2024-05-27 13:37 | disposition home or self-care (01) ==
PROVIDERS: Emergency Medicine; Emergency Provider Physician Assistant; PCP Family Medicine
DX: J06.9 Acute upper respiratory infection, unspecified (principal); R50.9 Fever, unspecified; R06.02 Shortness of breath; Z87.891 Personal history of nicotine dependence
CPT/HCPCS: 0241U; 36415; 71046; 80053; 83690; 85025; 87651; 96361; 96374; 96375; 99284; J1885; J2405

== ENCOUNTER 2024-05-28 15:20 | Emergency (ER) | payer OTHER, SELFPAY ==
[2024-05-28] VITALS (12 sets, daily range): BP systolic 102–146; BP diastolic 57–83; PULSE 110–140; RESP 14–42; TEMP 38.3–38.4; O2SAT 91–97; BMI 40.6
--- NOTE | 2024-05-28 15:32 | DI.RAD.S_ITS ---
PROCEDURE: XR CHEST 1V INDICATIONS: suspected sepsis TECHNIQUE: One view of the chest was acquired. COMPARISON: [facility], CR, XR CHEST 2V, 05/27/2024, 8:53. [facility], CR, XR CHEST 1V, 05/07/2022, 18:08. FINDINGS: Surgical changes and devices: None. Lungs and pleura: Right basilar opacity. Mediastinum: Mediastinal contours appear normal. Heart size is normal. Bones and chest wall: No suspicious bony lesions. Overlying soft tissues appear unremarkable. IMPRESSION: Right basilar opacity concerning for pneumonia. Dictated by: Phuc Moon M.D. on 05/28/2024 at 15:58 Approved by: Phuc Moon M.D. on 05/28/2024 at 15:58
--- NOTE | 2024-05-28 15:37 | EKG_ITS ---
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
[2024-05-28] MEDS: ALBUTEROL/IPRATROPIUM 3 ML AMPUL 9 ML INH (15:47)
[2024-05-28 15:55] LABS: Add Manual Diff / Slide Review NO; Basophils Absolute Auto 100 /uL (0-100); Basophils Percent Auto 0.7 % (0-2); Eosinophils Absolute Auto 100 /uL (0-450); Eosinophils Percent Auto 0.5 % (2-4); Hematocrit 37.3 % (41-53); Hemoglobin 12.7 g/dL (13.5-17.5); Lymphocytes Absolute Auto 1100 /uL (1100-4500); Lymphocytes Percent Auto 9.7 % (25-40); Mean Corpuscular Hemoglobin 28.8 PG (26-34); Mean Corpuscular Volume 84.6 fL (80-100); Monocytes Absolute Auto 1100 /uL (0-900); Monocytes Percent Auto 9.6 % (3-14); Neutrophils Absolute Auto 9000 /uL (1500-7000); Neutrophils Percent Auto 79.5 % (50-75); Platelet Count 442 X10^3/uL (150-400); Red Blood Cell Count 4.41 X10^6/uL (4.5-5.9); Red Cell Distribution Width 13.5 % (11.6-14.8); White Blood Cell Count 11.3 X10^3/uL (4.5-11.0)
[2024-05-28] MEDS: SODIUM CHLORIDE 0.9% 1,000 ML 1000 ML IV ×2 (16:01→17:01)
[2024-05-28 16:02] LABS: INR 1.1 (0.9-1.3)
[2024-05-28 16:05] LABS: PTT Partial Thromboplastin Tim 36 SECONDS (25.1-36.5)
[2024-05-28 16:09] LABS: Alanine Aminotransferase 71 IU/L (<50); Albumin 4.4 g/dL (3.5-5.0); Albumin Globulin Ratio 1.3 (1.0-2.8); Alkaline Phosphatase 138 U/L (38-126); Aspartate Aminotransferase 79 IU/L (17-59); BUN Creatinine Ratio 14.1 (6-22); Bilirubin Total 0.6 mg/dL (0.2-1.3); Blood Urea Nitrogen 11 mg/dL (9-20); Calcium 9.3 mg/dL (8.4-10.2); Carbon Dioxide 18 mmol/L (22-32); Chloride 101 mmol/L (98-107); Estimated Glomerular Filt Rate > 60 mL/min (>60); Globulin 3.3 g/dL (1.7-4.1); Glucose 119 mg/dL (70-100); HEMOLYSIS < 15 (0-50); Lactate (Lactic Acid) 1.6 mmol/L (0.7-2.1); Lipase 38 U/L (23-300); Sodium 135 mmol/L (137-145); Total Protein 7.7 g/dL (6.3-8.2)
[2024-05-28] MEDS: cefTRIAXone 1,000 MG in SODIUM CHLORIDE 0.9% 100 ML 200 MG IV (16:15)
--- NOTE | 2024-05-28 16:18 | ED_ITS ---
HPI - URI/Sore Throat General Chief Complaint: Upper Respiratory Symptoms Stated Complaint: fever, visual disturbance, was here yesterday Time Seen by Provider: 05/28/24 16:07 Source: patient Mode of arrival: Ambulatory History of Present Illness HPI Narrative: 33-year-old male with a history of Crohn's disease and asthma that was seen yesterday for cough and fever that started on progressively got worse over the weekend despite taking nyquil and tylenol presented back today with fever 101 productive cough, fever, chills, and bodyaches and not feeling any better despite negative viral testing and chest xray that showed no acute process. Other than what is stated 14 pt ROS is negative. Related Data Previous Rx's Medication Instructions Recorded hydroxyzine HCl 25 mg tablet 25 mg PO QID PRN anxiety #90 tabs 08/31/23 albuterol sulfate 90 mcg/actuation 1 inh inhalation QID PRN shortness 05/27/24 aerosol inhaler of breath or wheezing #6.7 grams benzonatate 100 mg capsule 100 mg PO BID-TID PRN cough #20 05/27/24 caps ondansetron 4 mg disintegrating 4 mg PO Q8H PRN nausea and 05/27/24 tablet vomiting #14 tabs amoxicillin 875 mg-potassium 1 tab PO Q12H #14 tabs 05/28/24 clavulanate 125 mg tablet azithromycin 250 mg tablet 250 mg PO DAILY 4 days #4 tabs 05/28/24 hydrocodone-homatropine 5 mg-1.5 5 ml PO Q6H PRN cough #200 mL 05/28/24 mg/5 mL (5 mL) oral syrup Allergies Allergy/AdvReac Type Severity Reaction Status Date / Time Sulfa (Sulfonamide AdvReac Hives Verified 05/28/24 15:23 Antibiotics) Review of Systems Review of Systems ROS Unobtainable: All systems reviewed & are unremarkable except as noted in HPI and below Patient History Medical History History of tobacco use Salivary gland infection Healthy adult Social History marital status: unmarried,living together number of children: 3 household members: significant other and children lives independently: Yes education level: high school (did not graduate) occupational status: employed Smoking Status: Former smoker Tobacco: How many years used: 12 Smoking Status: Former smoker Exam Initial Vital Signs Initial Vital Signs: Vital Signs Temperature 101.1 F H 05/28/24 15:23 Pulse Rate 113 H 05/28/24 15:23 Respiratory Rate 20 05/28/24 15:23 Blood Pressure 138/77 05/28/24 15:23 Pulse Oximetry 96 05/28/24 15:23 Oxygen Delivery Method Room Air 05/28/24 15:23 GENERAL: [] year old patient appears stated age. Well-developed patient, in mild distress. HEAD: Atraumatic. Normocephalic. EYES: Pupils equal round and reactive. Extraocular motions intact. No scleral icterus. No injection or drainage. ENT: Nose without bleeding, purulent drainage. Throat without erythema, tonsillar hypertrophy or exudate. Airway patent. NECK: Trachea midline. Non tender CARDIOVASCULAR: Tachycardic, regular and rhythm without murmurs, gallops, or rubs. RESPIRATORY: Coarse bilateral rhonchi throughtout. Breath sounds equal bilaterally. GASTROINTESTINAL: Abdomen soft, non-tender, nondistended. EXTREMITIES: No edema or joint tenderness. BACK: Nontender without deformity or crepitance. No flank tenderness. NEURO: AOx3. SKIN: No rash or erythema of visible areas Course Orders Ordered: ED Orders 05/28/24 15:32 XR chest 1V Stat EKG-12 Lead Stat RT Consult Eval and Treat NOW 05/28/24 15:45 Complete Blood Count AUTO DIFF Stat Comprehensive Metabolic Panel Stat Lactate (Lactic Acid) Stat Lipase Stat PTT Partial Thromboplastin Philip Stat Procalcitonin Stat Prothrombin Time INR Stat 05/28/24 16:40 Blood Culture Stat Ondansetron HCl (Ondansetron 4 Mg Odt) 4 mg SL NOW PRN PRN Reason: Nausea And Vomiting Discontinued Medications Albuterol/Ipratropium (Albuterol/Ipratropium 3 Ml Ampul) 9 ml INH NOW ONE Stop: 05/28/24 15:45 Last Admin: 05/28/24 15:47 Dose: 9 ml Documented By: MATHIEU Sodium Chloride (Normal Saline 0.9%) 1,000 mls @ 1,000 mls/hr IV BOLUS ONE Stop: 05/28/24 16:31 Last Infusion: 05/28/24 17:05 Dose: Infused Documented By: Admin: 05/28/24 16:01 Dose: 1,000 mls/hr Documented By: SHABANA Sodium Chloride (Normal Saline 0.9%) 1,000 mls @ 1,000 mls/hr IV BOLUS ONE Stop: 05/28/24 17:06 Last Admin: 05/28/24 17:01 Dose: 1,000 mls/hr Documented By: SHABANA Ceftriaxone Sodium 1,000 mg/ (Sodium Chloride) 100 mls @ 200 mls/hr IV NOW ONE Stop: 05/28/24 16:08 Last Infusion: 05/28/24 16:49 Dose: Infused Documented By: Admin: 05/28/24 16:15 Dose: 200 mls/hr Documented By: SHABANA Azithromycin 500 mg/ Dextrose 250 mls @ 250 mls/hr IV NOW ONE Stop: 05/28/24 16:08 Last Admin: 05/28/24 16:52 Dose: 250 mls/hr Documented By: SHABANA Ketorolac Tromethamine (Ketorolac 30 Mg/Ml Vial) 15 mg IV NOW ONE Stop: 05/28/24 16:08 Last Admin: 05/28/24 16:25 Dose: 15 mg Documented By: SHABANA Ondansetron HCl (Ondansetron 4 Mg/2 Ml Inj) 4 mg IV NOW PRN PRN Reason: Nausea And Vomiting Last Admin: 05/28/24 16:37 Dose: 4 mg Documented By: DIRK Vital Signs Vital signs: Vital Signs - 8 hr 05/28/24 15:23 05/28/24 15:39 05/28/24 15:41 Temperature 101.1 F H Pulse Rate 113 H 114 H 110 H Respiratory Rate 20 18 Blood Pressure 138/77 Pulse Oximetry 96 97 96 Oxygen Delivery Method Room Air 05/28/24 15:41 05/28/24 15:47 05/28/24 16:00 Temperature Pulse Rate 120 H 117 H Respiratory Rate 16 18 Blood Pressure 146/83 H Pulse Oximetry 92 92 Oxygen Delivery Method Room Air 05/28/24 16:00 05/28/24 16:25 05/28/24 16:30 Temperature 101 F H Pulse Rate 140 H Respiratory Rate 42 H Blood Pressure 142/75 H Pulse Oximetry 97 Oxygen Delivery Method 05/28/24 16:42 05/28/24 16:42 05/28/24 17:00 Temperature Pulse Rate 128 H 126 H Respiratory Rate 22 35 H Blood Pressure 121/72 Pulse Oximetry 91 96 Oxygen Delivery Method Room Air 05/28/24 17:01 05/28/24 17:01 05/28/24 17:30 Temperature Pulse Rate 122 H 115 H Respiratory Rate 14 29 H Blood Pressure 117/57 L Pulse Oximetry 97 94 Oxygen Delivery Method 05/28/24 17:30 05/28/24 18:00 05/28/24 18:00 Temperature Pulse Rate 111 H Respiratory Rate 21 Blood Pressure 102/59 L 116/61 Pulse Oximetry 96 Oxygen Delivery Method MDM - URI/Sore Throat Lab Data 05/28/24 15:45 05/28/24 15:45 Labs: Lab Results 05/28/24 Range/Units 15:45 WBC 11.3 H (4.5-11.0) X10^3/uL RBC 4.41 L (4.5-5.9) X10^6/uL Hgb 12.7 L (13.5-17.5) g/dL Hct 37.3 L (41-53) % MCV 84.6 (80-100) fL MCH 28.8 (26-34) PG MCHC 34.0 (30-36) % RDW 13.5 (11.6-14.8) % Plt Count 442 H (150-400) X10^3/uL Neut % (Auto) 79.5 H (50-75) % Lymph % (Auto) 9.7 L (25-40) % [place] % (Auto) 9.6 (3-14) % Eos % (Auto) 0.5 L (2-4) % Baso % (Auto) 0.7 (0-2) % Neut # (Auto) 9000 H (3641-8811) /uL Lymph # (Auto) 1100 (7005-4289) /uL [place] # (Auto) 1100 H (0-900) /uL Eos # (Auto) 100 (0-450) /uL Baso # (Auto) 100 (0-100) /uL PT 12.0 (9.4-12.5) SECONDS INR 1.1 (0.9-1.3) APTT 36 (25.1-36.5) SECONDS Sodium 135 L (137-145) mmol/L Potassium 4.0 (3.4-5.1) mmol/L Chloride 101 (98-107) mmol/L Carbon Dioxide 18 L (22-32) mmol/L BUN 11 (9-20) mg/dL Creatinine 0.78 (0.66-1.25) mg/dL Estimated GFR > 60 (>60) mL/min BUN/Creatinine Ratio 14.1 (6-22) Glucose 119 H (70-100) mg/dL Lactate 1.6 (0.7-2.1) mmol/L Calcium 9.3 (8.4-10.2) mg/dL Total Bilirubin 0.6 (0.2-1.3) mg/dL AST 79 H (17-59) IU/L ALT 71 H (<50) IU/L Alkaline Phosphatase 138 H (38-126) U/L Total Protein 7.7 (6.3-8.2) g/dL Albumin 4.4 (3.5-5.0) g/dL Globulin 3.3 (1.7-4.1) g/dL Albumin/Globulin Ratio 1.3 (1.0-2.8) Lipase 38 (23-300) U/L Procalcitonin 0.092 (<0.5) ng/mL Imaging Data Chest x-ray: Radiologist's Impression: [address] [address] XRay Report Signed Patient: Uriel Christianson MR#: [id number] : 1990 Acct:[id number] Age/Sex: 33 / M Date of Service: 05/28/24 Loc: ED Accession Number: [id number] Procedure: XR chest 1V Ordering Provider: Tg Stringer D.O. PROCEDURE: XR CHEST 1V INDICATIONS: suspected sepsis TECHNIQUE: One view of the chest was acquired. COMPARISON: [facility], CR, XR CHEST 2V, 05/27/2024, 8:53. [facility], CR, XR CHEST 1V, 05/07/2022, 18:08. FINDINGS: Surgical changes and devices: None. Lungs and pleura: Right basilar opacity. Mediastinum: Mediastinal contours appear normal. Heart size is normal. Bones and chest wall: No suspicious bony lesions. Overlying soft tissues appear unremarkable. IMPRESSION: Right basilar opacity concerning for pneumonia. ECG Data Interpretation: EKG Sinus Tach HR [address]-T wave changes Normal IN inteterval MDM Narrative Medical decision making narrative: All labwork, ekg, and cxr, Rn notes and vital signs all reviewed. Pt given rocephin 1g IV and zithromax 500mg IV, zofran, toradol and tylenol here. D/c home on augmentin, zithromax, and hycodan rx. Differential dx sepsis, pneumonia, covid, flu, rsv. Pt will be given work note and to return with new or worsening symptoms. Discharge Plan Departure Patient Disposition: Home Clinical Impression: Pneumonia Instructions: Pneumonia-Adult Activity Restrictions/Additional Instructions: Return with new or worsening symptoms. Prescriptions: New amoxicillin-pot clavulanate 875-125 mg tablet 1 tab PO Q12H Qty: 14 0RF azithromycin 250 mg tablet 250 mg PO DAILY 4 Days Qty: 4 0RF Rx Instructions: start on day 2 of therapy hydrocodone-homatropine 5-1.5 mg/5 mL (5 mL) syrup 5 ml PO Q6H PRN (Reason: cough) Qty: 200 0RF No Action hydroxyzine HCl 25 mg tablet 25 mg PO QID PRN (Reason: anxiety) Qty: 90 0RF albuterol sulfate 90 mcg/actuation HFA aerosol inhaler 1 inh inhalation QID PRN (Reason: shortness of breath or wheezing) Qty: 6.7 0RF benzonatate 100 mg capsule 100 mg PO BID-TID PRN (Reason: cough) Qty: 20 0RF ondansetron 4 mg tablet,disintegrating 4 mg PO Q8H PRN (Reason: nausea and vomiting) Qty: 14 0RF Referrals: Gaston Newberry MD [Primary Care Provider] - Stand Alone Forms: Patient Portal/API/Survey
[2024-05-28 16:25] LABS: Procalcitonin 0.092 ng/mL (<0.5)
[2024-05-28] MEDS: KETOROLAC 30 MG/ML VIAL 15 MG IV (16:25)
[2024-05-28] MEDS: ONDANSETRON 4 MG/2 ML INJ IV (16:37)
[2024-05-28] MEDS: AZITHROMYCIN 500 MG in DEXTROSE 5% IN WATER 250 ML 250 MG IV (16:52)
== END 2024-05-28 18:33 | disposition home or self-care (01) ==
PROVIDERS: Emergency Medicine; Emergency Provider Family Medicine; PCP Family Medicine
DX: J18.9 Pneumonia, unspecified organism (principal); J45.909 Unspecified asthma, uncomplicated; Z87.891 Personal history of nicotine dependence
CPT/HCPCS: 36415; 71045; 80053; 83605; 83690; 84145; 85025; 85610; 85730; 87040; 93005; 94640; 96365; 96367; 96375; 99284; J0696; J1885; J2405

== ENCOUNTER 2024-08-24 19:21 | Emergency (ER) | payer OTHER, SELFPAY ==
[2024-08-24 19:31] VITALS: BP 105/56; PULSE 66; RESP 16; TEMP 36.2; O2SAT 98; BMI 36.6
--- NOTE | 2024-08-24 19:47 | ED.WOUNDLAC ---
HPI - Wound/Laceration General Chief Complaint: Wound/Laceration Stated Complaint: Cut LT index finger with sharp knife Time Seen by Provider: 08/24/24 19:47 Source: patient Mode of arrival: Ambulatory History of Present Illness HPI narrative: Patient is a 33-year-old male who presents to the emergency department for cut to left index finger, states that he cut it on a pocket knife immediately prior to arrival, not up-to-date on tetanus denies any other injuries not on any blood thinners Related Data Previous Rx's ?Medication ?Instructions ?Recorded hydroxyzine HCl 25 mg tablet 25 mg PO QID PRN anxiety #90 tabs 08/31/23 albuterol sulfate 90 mcg/actuation 1 inh inhalation QID PRN shortness 05/27/24 aerosol inhaler of breath or wheezing #6.7 grams benzonatate 100 mg capsule 100 mg PO BID-TID PRN cough #20 05/27/24 caps ondansetron 4 mg disintegrating 4 mg PO Q8H PRN nausea and 05/27/24 tablet vomiting #14 tabs amoxicillin 875 mg-potassium 1 tab PO Q12H #14 tabs 05/28/24 clavulanate 125 mg tablet hydrocodone-homatropine 5 mg-1.5 5 ml PO Q6H PRN cough #200 mL 05/28/24 mg/5 mL (5 mL) oral solution cephalexin 500 mg capsule 500 mg PO Q6H 5 days #20 caps 08/24/24 Allergies Allergy/AdvReac Type Severity Reaction Status Date / Time Sulfa (Sulfonamide AdvReac Hives Verified 08/24/24 19:31 Antibiotics) Review of Systems Review of Systems Narrative: General: Denies fever, chills, weight loss HEENT: Denies headache, eye drainage, eye irritation, head trauma, sore throat, voice change Cardiovascular: Denies any chest pain, palpitations, tachycardia Respiratory: Denies any shortness of breath, cough, wheeze, stridor GI/: Denies any abdominal pain, nausea, vomiting, diarrhea, bright red blood per rectum, melanotic stools, urinary frequency, urinary retention, dysuria, hematuria MSK: Laceration to the tip of the left index finger Skin: Denies any rashes, lesions, discoloration Neuro: Denies any headache, lightheadedness, dizziness, fainting, weakness Psych: Denies SI/HI Patient History Medical History History of tobacco use Salivary gland infection Healthy adult Social History marital status: unmarried,living together number of children: 3 household members: significant other and children lives independently: Yes education level: high school (did not graduate) occupational status: employed Smoking Status: Never smoker Tobacco: How many years used: 12 Smoking Status: Never smoker Exam Narrative Exam Narrative: General: Cooperative, well-developed, not in acute distress HEENT: Normocephalic, atraumatic, PERRLA, normal sclera, eyelids normal Neck: Active full range of motion, atraumatic Chest: Normal to inspection, negative crepitus, no overlying erythema ecchymosis Respiratory: Normal respiratory effort, not in acute respiratory distress, clear to auscultation bilaterally negative cough, wheeze, tachypnea, rhonchi, rales Cardiology: Regular rate rhythm negative gallop, murmur, rubs GI/: No tenderness to palpation, soft, non rigid, normal to inspection, exam deferred MSK: Full active range of motion in all 4 extremities, atraumatic, patient with a 1 cm elliptical laceration to the posterior aspect of the left finger not involving the nail bed neurovascularly intact no foreign body Skin: No rashes or lesions noted Neuro: Alert awake oriented x3, moves all 4 extremities spontaneously, cranial nerves intact, able to answer all questions appropriately follows commands appropriately Psych: Cooperative, negative suicidal or homicidal ideations Initial Vital Signs Initial Vital Signs: Vital Signs Temperature 97.1 F L 08/24/24 19:31 Pulse Rate 66 08/24/24 19:31 Respiratory Rate 16 08/24/24 19:31 Blood Pressure 105/56 L 08/24/24 19:31 Pulse Oximetry 98 08/24/24 19:31 Oxygen Delivery Method Room Air 08/24/24 19:31 Procedures Laceration Repair Laceration 1: Time of procedure: 20:11 Site: hand Side (If applicable): left Size (cm): 1 Description: flap Depth: simple, single layer Local Anesthetic: lidocaine 1% Amount of anesthesia used (mL): 3 Pre-repair: wound explored, irrigated extensively and deep structures intact Skin layer closed with: other (Ethilon) Skin layer suture size: 4-0 Number of sutures: 6 Technique: simple, interrupted Course Vital Signs Vital signs: Vital Signs - 8 hr 08/24/24 19:31 Temperature 97.1 F L Pulse Rate 66 Respiratory Rate 16 Blood Pressure 105/56 L Pulse Oximetry 98 Oxygen Delivery Method Room Air MDM - Wound/Laceration Differential Diagnosis Differential diagnosis: Likely laceration, abrasion and avulsion of skin MDM Narrative Medical decision making narrative: 33-year-old male presenting for laceration to the tip of his left finger, states that he was putting his hand in his pocket and there was a pocket knife and cut him, on exam flap noted to the aspect of the left index finger not involving the nail bed, 6 sutures were placed using 4 0 Ethilon, patient updated on his tetanus here in the emergency department and will be discharged home with a prophylactic antibiotic, he was instructed to follow up with primary care and was given strict return precautions on exam he is neurovascularly intact, patient verbalized understanding of this and agrees to being discharged home with outpatient follow up Discharge Plan Departure Patient Disposition: Home Clinical Impression: Laceration of finger Instructions: How to Care for a Laceration After Repair, DI for Laceration Repair Activity Restrictions/Additional Instructions: You have sutures that need to be removed in approximately 1 week Please read the discharge instructions sheet carefully and bring all papers to all doctor follow-up visits, as it may contain information that your doctor may want to see. Disease processes change and evolve, if your symptoms worsen or if you develop any new symptoms that are concerning to you please return for evaluation. Your evaluation today does not show any evidence of any life-threatening/serious illnesses requiring admission to the hospital or surgery. Please follow-up with your doctor for re-evaluation in approximately 1 day. Seek immediate medical attention for any worrisome symptoms. *If you do not have a primary care provider please contact the [facility] Resource line at [phone]. They will ask some questions about your medical history and help get you set up with a doctor in the community. Prescriptions: New cephalexin 500 mg capsule 500 mg PO Q6H 5 Days Qty: 20 0RF No Action hydroxyzine HCl 25 mg tablet 25 mg PO QID PRN (Reason: anxiety) Qty: 90 0RF albuterol sulfate 90 mcg/actuation HFA aerosol inhaler 1 inh inhalation QID PRN (Reason: shortness of breath or wheezing) Qty: 6.7 0RF benzonatate 100 mg capsule 100 mg PO BID-TID PRN (Reason: cough) Qty: 20 0RF ondansetron 4 mg tablet,disintegrating 4 mg PO Q8H PRN (Reason: nausea and vomiting) Qty: 14 0RF amoxicillin-pot clavulanate 875-125 mg tablet 1 tab PO Q12H Qty: 14 0RF hydrocodone-homatropine 5-1.5 mg/5 mL (5 mL) syrup 5 ml PO Q6H PRN (Reason: cough) Qty: 200 0RF Referrals: Gaston Newberry MD [Primary Care Provider, Family Practice] Stand Alone Forms: Patient Portal/API
[2024-08-24] MEDS: TET,DIPH,PERTUSS(ACELL),VAC/PF 0.5 ML SYRINGE IM (20:14)
[2024-08-24] MEDS: cephALEXin 250 MG CAPSULE 500 MG PO (20:15)
[2024-08-24 20:25] VITALS: BP 125/74; PULSE 83; RESP 16; O2SAT 100
== END 2024-08-24 20:26 | disposition home or self-care (01) ==
PROVIDERS: Emergency Provider Student in an Organized Health Care Education/Training Program; PCP Family Medicine
DX: S61.211A Laceration without foreign body of left index finger without damage to nail, initial encounter (principal); W26.0XXA Contact with knife, initial encounter; Z23 Encounter for immunization
CPT/HCPCS: 12001; 90471; 99283; 99284; 90715